=== PATIENT | male | born 1965 | race Caucasian/White ===

== ENCOUNTER 2019-04-20 10:23 | Inpatient (IN) | payer MEDICARE ==
[~2019-04-20] VITALS: Ht 175.3 cm; Wt 82.3 kg
[2019-04-20 12:26] VITALS: BP 115/82
[2019-04-20] MEDS ORDERED: ZOLPIDEM TARTRATE 10 MG TABLET PO PRN (12:30)
[2019-04-20] MEDS ORDERED: HALOPERIDOL 5 MG TABLET PO PRN (12:30)
[2019-04-20] MEDS ORDERED: LORazepam 2 MG TABLET PO PRN (12:30)
[2019-04-20 13:41] VITALS: BP 120/77
[2019-04-20] MEDS ORDERED: ALBUTEROL SULFATE HFA 90 MCG/PUFF 8 GM INHALER IH PRN (14:00)
[2019-04-20] MEDS ORDERED: LOPERAMIDE HCL 2 MG CAPSULE PO PRN (14:00)
[2019-04-20] MEDS ORDERED: ONDANSETRON HCL 4 MG TABLET PO PRN (14:00)
[2019-04-20] MEDS ORDERED: GuaiFENesin/D-METHORPHAN [SUGAR-FREE] 200-20MG/10 ML SYRUP UDCUP PO PRN (14:00)
[2019-04-20] MEDS ORDERED: CloNIDine HCL 0.1 MG TABLET PO PRN (14:00)
[2019-04-20] MEDS ORDERED: ACETAMINOPHEN 325 MG TABLET PO PRN (14:00)
[2019-04-20] MEDS ORDERED: DOCUSATE SODIUM 100 MG CAPSULE PO PRN (14:00)
[2019-04-20] MEDS ORDERED: PETROLATUM,WHITE 28 GM JELLY TP PRN (14:00)
[2019-04-20] MEDS ORDERED: MAG HYDROX/AL HYDROX/SIMETH ES 30 ML SUSPENSION UDCUP PO PRN (14:00)
[2019-04-20] MEDS ORDERED: NICOTINE 14 MG/24 HOUR PATCH TD PRN (14:00)
[2019-04-20] MEDS ORDERED: IBUPROFEN 400 MG TABLET PO PRN (14:00)
[2019-04-20] MEDS ORDERED: MAGNESIUM HYDROXIDE SUSPENSION 30 ML UDCUP PO PRN (14:00)
[2019-04-20 16:12] VITALS: BP 102/68
[2019-04-20] MEDS: CARVEDILOL 12.5 MG TABLET PO SCH (17:23)
[2019-04-20] MEDS: MetFORMIN HCL 500 MG TABLET PO SCH (17:23)
[2019-04-20] MEDS: ATORVASTATIN CALCIUM 20 MG TABLET PO SCH (20:26)
[2019-04-21 00:13] VITALS: BP 115/74
[2019-04-21 06:05] LABS: GLUCOMETER DEV NAME(LOC) BV2S.; GLUCOSE,POINT OF CARE 93 MG/DL (70-110)
[2019-04-21 07:44] LABS: BASOPHILS % (AUTO) 0.6 % (0.0-2.0); HEMATOCRIT 45.8 % (41-53); HEMOGLOBIN 15.3 g/dL (13.5-17.5); LYMPHOCYTES # (AUTO) 1.1 K/uL (1.0-4.8); MEAN CORPUSCULAR HEMOGLOBIN 29.6 pg (26.0-34.0); MEAN CORPUSCULAR HGB CONC 33.4 G/dL (31.0-37.0); MEAN CORPUSCULAR VOLUME 89 fL (80-100); MONOCYTES # (AUTO) 0.5 K/uL (0.1-1.0); MONOCYTES % (AUTO) 8.8 % (2.0-9.0); NEUTROPHILS # (AUTO) 4.3 K/uL (1.8-7.7); NEUTROPHILS % (AUTO) 70.6 % (40.0-70.0); PLATELET COUNT (AUTO) 245 K/uL (150-450); RED BLOOD CELL COUNT(AUTO) 5.16 MIL/uL (4.50-5.90)
[2019-04-21 07:52] LABS: AMPHET/METH SCREEN,URINE NEGATIVE (NEGATIVE); BARBITURATE SCREEN, URINE NEGATIVE (NEGATIVE); BENZODIAZEPINES SCREEN,URINE NEGATIVE (NEGATIVE); CANNABINOID SCREEN,URINE NEGATIVE (NEGATIVE); COCAINE SCREEN,URINE NEGATIVE (NEGATIVE); METHADONE SCREEN, URINE NEGATIVE (NEGATIVE); OPIATE SCREEN,URINE NEGATIVE (NEGATIVE)
[2019-04-21 07:54] LABS: PHENCYCLIDINE SCREEN,URINE NEGATIVE (NEGATIVE)
[2019-04-21 07:59] LABS: HEMOGLOBIN A1C 6.2 % (4.5-6.2)
[2019-04-21 08:04] LABS: APPEARANCE,URINE CLEAR (CLEAR); BILIRUBIN,URINE NEGATIVE (NEGATIVE); GLUCOSE, URINE (UA) NEGATIVE (NEGATIVE); KETONES,URINE NEGATIVE (NEGATIVE); LEUKOCYTE ESTERASE ,URINE NEGATIVE (NEGATIVE); NITRATE,URINE NEGATIVE (NEGATIVE); OCCULT BLOOD,URINE NEGATIVE (NEGATIVE); PROTEIN,URINE NEGATIVE (NEGATIVE); UROBILINOGEN,URINE 0.2 mg/dL (<=1.0)
[2019-04-21] MEDS: SPIRONOLACTONE 25 MG TABLET PO SCH (08:10)
[2019-04-21] MEDS: FUROSEMIDE 80 MG TABLET PO SCH (08:10)
[2019-04-21] MEDS: CARVEDILOL 12.5 MG TABLET PO SCH ×2 (08:10→16:47)
[2019-04-21] MEDS: LISINOPRIL 20 MG TABLET PO SCH (08:11)
[2019-04-21 08:15] LABS: ALBUMIN 3.5 g/dL (3.4-5.0); BILIRUBIN,TOTAL 1.2 mg/dL (0.1-1.0); CALCIUM, TOTAL 9.8 mg/dL (8.8-10.5); CHOL/HDL RATIO 2.5 (4.2-7.3); CREATININE 1.27 mg/dL (0.60-1.30); POTASSIUM 3.9 mmol/L (3.5-5.1); THYROID STIMULATING HORMONE 2.5 uIU/mL (0.36-3.74); TOTAL PROTEIN, SERUM 7.4 g/dL (6.4-8.2)
[2019-04-21 08:20] VITALS: BP 115/76
[2019-04-21] MEDS: SERTRALINE HCL 50 MG TABLET PO SCH (13:12)
[2019-04-21 16:37] VITALS: BP 116/67
[2019-04-21 16:39] LABS: GLUCOMETER DEV NAME(LOC) BV2S.; GLUCOSE,POINT OF CARE 84 MG/DL (70-110)
[2019-04-21] MEDS: MetFORMIN HCL 500 MG TABLET PO SCH (16:47)
[2019-04-21] MEDS: ATORVASTATIN CALCIUM 20 MG TABLET PO SCH (20:38)
[2019-04-22 05:57] VITALS: BP 121/90
[2019-04-22 06:44] LABS: GLUCOMETER DEV NAME(LOC) BV2S.; GLUCOSE,POINT OF CARE 127 MG/DL (70-110)
[2019-04-22] MEDS: SPIRONOLACTONE 25 MG TABLET PO SCH (08:29)
[2019-04-22] MEDS: FUROSEMIDE 80 MG TABLET PO SCH (08:29)
[2019-04-22] MEDS: CARVEDILOL 12.5 MG TABLET PO SCH ×2 (08:29→17:04)
[2019-04-22] MEDS: LISINOPRIL 20 MG TABLET PO SCH (08:29)
[2019-04-22] MEDS: SERTRALINE HCL 50 MG TABLET PO SCH (08:29)
[2019-04-22 08:44] VITALS: BP 110/84
[2019-04-22 16:41] VITALS: BP 110/76
[2019-04-22 16:54] LABS: GLUCOMETER DEV NAME(LOC) BV2S.; GLUCOSE,POINT OF CARE 128 MG/DL (70-110)
[2019-04-22] MEDS: MetFORMIN HCL 500 MG TABLET PO SCH (17:04)
[2019-04-22] MEDS: ATORVASTATIN CALCIUM 20 MG TABLET PO SCH (20:14)
[2019-04-22] MEDS ORDERED: SERTRALINE HCL 100 MG TABLET PO SCH (21:00)
[2019-04-23 00:43] VITALS: BP 106/78
[2019-04-23 07:13] LABS: GLUCOMETER DEV NAME(LOC) BV2S.; GLUCOSE,POINT OF CARE 96 MG/DL (70-110)
[2019-04-23] MEDS ORDERED: CARV12 PO (07:39)
[2019-04-23] MEDS ORDERED: SERT100T12 PO (07:39)
[2019-04-23] MEDS ORDERED: ATOR20TA86 PO (07:39)
[2019-04-23] MEDS ORDERED: METF-960 PO (07:39)
[2019-04-23] MEDS ORDERED: LISI-662 PO (07:39)
[2019-04-23] MEDS ORDERED: SPIR25 PO (07:39)
[2019-04-23] MEDS ORDERED: FURO80 PO (07:39)
[2019-04-23] MEDS: SPIRONOLACTONE 25 MG TABLET PO SCH (08:15)
[2019-04-23] MEDS: CARVEDILOL 12.5 MG TABLET PO SCH (08:15)
[2019-04-23] MEDS: LISINOPRIL 20 MG TABLET PO SCH (08:15)
[2019-04-23] MEDS: FUROSEMIDE 80 MG TABLET PO SCH (08:15)
[2019-04-23 08:36] VITALS: BP 121/72
== END 2019-04-23 09:55 | disposition home or self-care (01) | DRG 885 ==
LOC: B2S 12:36
PROVIDERS: ADMIT Psychiatry & Neurology Psychiatry; ATTEND Psychiatry & Neurology Psychiatry
DX: F33.3 Major depressive disorder, recurrent, severe with psychotic symptoms (principal); I50.32 Chronic diastolic (congestive) heart failure; F41.9 Anxiety disorder, unspecified; I11.0 Hypertensive heart disease with heart failure; F10.10 Alcohol abuse, uncomplicated; E78.5 Hyperlipidemia, unspecified; E11.9 Type 2 diabetes mellitus without complications; Z95.0 Presence of cardiac pacemaker; Z95.2 Presence of prosthetic heart valve; Z71.41 Alcohol abuse counseling and surveillance of alcoholic; Z79.899 Other long term (current) drug therapy
CPT/HCPCS: 80307; 83036; 84443; 86592